=== PATIENT | female | born 1970 | race Caucasian/White ===

== ENCOUNTER 2021-04-03 08:07 | Outpatient (REF) | payer OTHER, SELFPAY ==
[2021-04-03 09:25] LABS: Influenza A PCR NEGATIVE (Negative); Influenza B PCR NEGATIVE (Negative); Resp Syncy Virus RNA Qual PCR NEGATIVE (Negative); SARS COV2 PCR INHOUSE NEGATIVE (Negative)
== END 2021-04-03 08:08 | disposition home or self-care (01) ==
LOC: HO.LAB 08:07
PROVIDERS: PCP Internal Medicine; Visit Provider Internal Medicine
DX: Z20.822 Contact with and (suspected) exposure to COVID-19 (principal)
CPT/HCPCS: 0241U; 36415; C9803

== ENCOUNTER 2022-04-03 15:08 | Outpatient (REF) | payer OTHER, SELFPAY ==
[2022-04-06 13:26] LABS: SARS COV2 IgG POSITIVE
== END 2022-04-03 15:09 | disposition home or self-care (01) ==
LOC: HO.LAB 15:08
PROVIDERS: Visit Provider Surgery
DX: Z20.822 Contact with and (suspected) exposure to COVID-19 (principal)
CPT/HCPCS: 36415; 86769

== ENCOUNTER 2023-09-06 09:54 | Day surgery (SDC) | payer OTHER, SELFPAY ==
--- NOTE | 2023-09-03 13:32 | HO.ANESPROP2 ---
HPI - Anesthesia Eval Consult details Narrative: 53yo F for Upper Endoscopy and Colonoscopy PMFSH Active Problems Active Problems: All Active Problems (Updated 09/01/23 @ 20:41 by Elinor Plummer, DYLON) COVID (Acute) Past Medical History Medical History (Updated 09/01/23 @ 20:41 by Elinor Plummer, RN) Phyllodes neoplasm of breast Surgical History Surgical History (Updated 09/01/23 @ 20:47 by Elinor Plummer, DYLON) History of breast surgery H/O breast reconstruction History of appendectomy Social History Social History Patient Tobacco Use Status: Current everyday Tobacco user Are you DNR?: No Advance Directives: No Advance Directives Information Provided: Yes Meds Allergies Allergy/AdvReac Type Severity Reaction Status Date / Time No Known Allergies Allergy Unverified 07/04/20 19:02 [No Known Allergies*] SUNFLOWER SEEDS Allergy Unknown Uncoded 02/05/17 00:00 Home Medications Medication Instructions Recorded Confirmed Last Taken Type No Known Home Meds 09/01/23 09/01/23 Unknown History Exam Height,Weight and Vital Signs: Height 5 ft 6 in Weight 56.245 kg Assessment and Plan Assessment Anesthesia Assessment: Chart Reviewed
[2023-09-06 10:01] VITALS: BP 94/56; PULSE 78; RESP 20; TEMP 36.1; O2SAT 97
[2023-09-06 10:21] VITALS: BMI 19.8
--- NOTE | 2023-09-06 10:21 | PC.NURSE ---
LIGHT BROWNISH TO BENNETT LIQUID NO SOLIDS AFTER FLEETS
[2023-09-06] MEDS: Lactated Ringers 1,000 ML 100 ML IVCONT (10:30)
[2023-09-06] MEDS: Sodium Phosphate,Mono-Dibasic 133 ML ENEMA PR (10:30)
[2023-09-06 10:37] VITALS: PULSE 70; RESP 16; O2SAT 98
[2023-09-06] MEDS: Albuterol Sulfate (0.083%) 2.5 MG/3 ML VIAL.NEB INHALE (10:38)
[2023-09-06 12:06] VITALS: BP 98/55; PULSE 75; RESP 18; TEMP 36.8; O2SAT 100
--- NOTE | 2023-09-06 12:10 | PM.OP ---
Brief Operative Note Date of Service: 09/06/23 Pre-op diagnosis: Screening Post-op diagnosis: other (Polyp) Procedure: Colonoscopy to the cecum and TI with cold snare polypectomy Surgeon: Natalio Benson MD Anesthesia: MAC Was an Phlebotomy Director used for this Procedure?: No Estimated blood loss (mL): 2.0 Pathology: other (A. Polyp at 30cm) Condition: stable Disposition: PACU
[2023-09-06 12:21] VITALS: BP 96/53; PULSE 68; RESP 18; O2SAT 100
[2023-09-06 12:36] VITALS: BP 106/64; PULSE 66; RESP 18; TEMP 36.8; O2SAT 100
--- NOTE | 2023-09-06 22:14 | OP_ITS ---
DATE OF SERVICE: 09/06/2023 SURGEON: Natalio Benson MD INDICATIONS: The patient presents for evaluation of colorectal cancer screening. Full consent has been obtained from her for this, including risks of bleeding and perforation. PREOPERATIVE DIAGNOSIS: Colorectal cancer screening. POSTOPERATIVE DIAGNOSIS: PROCEDURE PERFORMED: Colonoscopy to the cecum and terminal ileum with cold snare polypectomy x 1. ESTIMATED BLOOD LOSS: COMPLICATIONS: ANESTHESIA: Medication used, monitored anesthesia care. ASSISTANTS: SPECIMENS: POSTOPERATIVE DIAGNOSES: Colorectal cancer screening, colon polyp, occasional sigmoid diverticulosis, internal hemorrhoids. DESCRIPTION OF PROCEDURE: The patient was placed in the left lateral decubitus position. The digital rectal exam revealed no abnormalities. The Olympus video pediatric colonoscope was entered into the rectum and advanced to the cecum. Advancement to the cecum was difficult and required abdominal wall pressure for different portions of the procedure. It also required turning her into the supine position. However, once in the cecum, I did identify cecal pouch with appendiceal orifice and a normal-appearing ileocecal valve. There was transillumination of light deep in the right lower quadrant. The terminal ileum was cannulated and appeared normal. The scope was withdrawn back in the colon. The entire cecum was well visualized other than a small portion near the appendiceal orifice due to some retained stool that could not be cleared away. However, the great majority of the cecum was visualized and appeared normal. The scope was then slowly withdrawn assessing all mucosal surfaces carefully. For the most part preparation was very good throughout the colon, but again there were some small areas of liquid stool which had to be irrigated and suctioned away as best as possible. At 30 cm was an approximately 5 mm polyp, which was removed by cold snare polypectomy and recovered by suction. The polypectomy site appeared clean, without any sign of residual polyp nor significant bleeding. I did not visualize any other polyps, colitis, or angiodysplasia. There was a mild amount of sigmoid diverticulosis. In the rectum, the scope was retroflexed visualizing internal hemorrhoids, but no other pathology. The rectal mucosa appeared normal. The scope was straightened and withdrawn from the patient. She tolerated the procedure well and was returned to the recovery area in stable condition. IMPRESSION: 1. Colon polyp. 2. Diverticulosis. 3. Internal hemorrhoids. PLAN: The results of the pathology will be checked. Even if the polyp is not a tubular adenoma, I would recommend a followup coloscopy in 5 years just due to the mildly limited prep and the difficult exam. She was advised not to use any aspirin and NSAIDs for 1 week. MD MEGAN Michael/VICKEY / [id number] MTDD
== END 2023-09-06 13:05 | disposition home or self-care (01) ==
PROVIDERS: PCP Internal Medicine; Visit Provider Internal Medicine
PROC: 0DJD8ZZ Inspection of Lower Intestinal Tract, Via Natural or Artificial Opening Endoscopic (ICD-10-PCS; CPT 45378; principal; 2023-09-06 10:50)
DX: Z12.11 Encounter for screening for malignant neoplasm of colon (principal); D12.5 Benign neoplasm of sigmoid colon; K57.30 Diverticulosis of large intestine without perforation or abscess without bleeding; K64.8 Other hemorrhoids; F17.210 Nicotine dependence, cigarettes, uncomplicated
CPT/HCPCS: 45385; 88305; 94640; J2250; J2704

== ENCOUNTER 2023-10-29 11:00 | Outpatient (AMB) | payer OTHER, SELFPAY ==
--- NOTE | 2023-10-29 11:17 | A.OFFVIS_ITS ---
Intake Intake Visit Reasons: LDCT SD Allergies No Known Allergies [No Known Allergies*] Allergy (Unverified 10/29/23 11:37) SUNFLOWER SEEDS Allergy (Unknown, Uncoded 10/29/23 11:37) Unknown HPI HPI Comments History of Present Illness Details Alvaro is a pleasant 53 year old female, current 1/2 ppd smoker with a 27 PYH. Patient has been smoking since age 26 for 27 years at 1 ppd, recently decreased to 1/2 ppd. Denies marijuana use. Denies exposure to chemicals or substances like asbestos. Admits second hand smoke exposure. Denies known family history of lung cancer. Denies personal history of cancers. Denies chest CT in last year. Admits recent travel outside the [place] to [place]. Denies fever, chills, chest pain, new cough, hemoptysis or unintentional weight loss. Lung Cancer Screening Questionnaire reviewed with patient by provider. Shared Decision Making Completed. Discussed in detail with patient, the risk versus benefit of LDCT screening. Patient in agreement of proceeding with scan. REPLACED BY [facility] Medical History (Updated 10/29/23 @ 11:56 by Nathalie Gilliam NP) Phyllodes neoplasm of breast Surgical History History of breast surgery H/O breast reconstruction History of appendectomy Social History Patient Tobacco Use Status: Current everyday Tobacco user Assessment & Plan Assessment & Plan (1) Nicotine dependence: Code(s): F17.200 - Nicotine dependence, unspecified, uncomplicated Plan Shared decision-making visit completed today in office. This patient meets criteria for LDCT for lung cancer screening purposes and is asymptomatic. Offered smoking cessation. Patient has been scheduled for a low dose chest CT for screening purposes at [facility]. We discussed how the results will be obtained depending on CT findings. RADS 1 and RADS 2 will receive a letter with results and will follow up for annual LDCT. Patient informed they will be contacted at later date to schedule upcoming LDCT scan. RADS 3 and RADS 4 will receive a telephone call, or an office visit after reviewing case at our Lung Cancer Conference to determine when the next LDCT will be scheduled or further interventions that may be needed. Discussed importance of screening program and compliance with yearly LDCT scan as scheduled. Risks, benefits, and alternatives were discussed in detail and patient agrees to proceed. Risks discussed include but are not limited to: radiation exposure and possibility of additional intervention for benign disease. Benefits include detection of lung cancer at an early stage. A copy of today's visit and LDCT results will be sent to patient's PCP. Incidental findings on LDCT are PCP's responsibility. If there are incidental findings, our office will ensure that PCP office is aware of these findings. All questions were answered and patient is in agreement of plan. Coding Level of Care Code Lung Cancer Screening G0296 Diagnoses Nicotine dependence F17.200
== END 2023-10-29 11:44 | disposition home or self-care (01) ==
PROVIDERS: PCP Internal Medicine; Visit Provider Nurse Practitioner Family
DX: F17.200 Nicotine dependence, unspecified, uncomplicated (principal)
CPT/HCPCS: G0296

== ENCOUNTER → 2023-10-29 11:00 | Outpatient (BNVA) | payer OTHER, SELFPAY | PROVIDERS: PCP Internal Medicine; Visit Provider Nurse Practitioner Family | DX: L82.1 Other seborrheic keratosis (principal); F17.200 Nicotine dependence, unspecified, uncomplicated | CPT/HCPCS: G0296 ==

== ENCOUNTER 2023-10-29 11:25 | Outpatient (AMB) | payer OTHER, SELFPAY ==
--- NOTE | 2023-10-29 11:28 | A.OFFVIS_ITS ---
Intake Vital Signs 3 10/29/23 11:36 Height 5 ft 6 in Weight 128 lb BMI 20.7 BP 118/60 Blood Pressure Location Lt brachial Pulse 54 Intake Visit Reasons: lesion on thigh Intake Note: Patient is seen in office for evaluation and treatment of a skin lesion on thigh. 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 She reports a lesion in the similar location approximately 18 years ago which was excised and determined to be benign. Over the last several months however the lesion has returned and has increased in size. She denies any pain but does report itching on occasion. There has been no bleeding or discharge from the site. She has a dermatology appointment scheduled for 6 months from now but would like to have the lesion check prior to this to see if it is concerning. She denies other suspicious skin lesions. [facility] Medical History Phyllodes neoplasm of breast Surgical History History of breast surgery H/O breast reconstruction History of appendectomy Social History Patient Tobacco Use Status: Current everyday Tobacco user Review of Systems Const All systems reviewed & are unremarkable except as noted in HPI and below Physical Exam Const General: no acute distress and well developed Nutritional Appearance: well nourished Orientation/consciousness: patient oriented x3 HEENT Head: Yes normocephalic Resp Effort & Inspection: normal respiratory effort, no audible wheezes, no cough and no respiratory distress Skin General skin exam: no rashes or lesions noted Neuro General: patient oriented x3 Extrem Other: Seborrheic keratosis located on the left thigh lateral surface measuring 4 x 9 mm with a crusted surface, even color pattern and symmetric margins. No ulceration or bleeding appreciated. General: Yes no clubbing, cyanosis or edema Knee images: 2 1. Site of lesion lateral left thigh 4 x 9 mm. Assessment & Plan Assessment & Plan (1) Seborrheic keratosis: Code(s): L82.1 - Other seborrheic keratosis Plan 53-year-old female patient presenting with a skin lesion of the left leg which appears consistent with a seborrheic keratosis. Lesion appears benign but certainly could be removed if desired. 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 Coding Level of Care Code New Pt Level 3 (61494) Diagnoses Seborrheic keratosis L82.1
[2023-10-29 11:36] VITALS: BP 118/60; PULSE 54; BMI 20.7
== END 2023-10-29 11:54 | disposition home or self-care (01) ==
PROVIDERS: PCP Internal Medicine; Visit Provider Surgery
DX: L82.1 Other seborrheic keratosis (principal)
CPT/HCPCS: 99203

== ENCOUNTER 2023-11-08 09:01 | Outpatient (AMB) | payer OTHER, SELFPAY ==
--- NOTE | 2023-11-08 09:03 | MHC.OFFVIS ---
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 Patient reports that her pain has been present for about 2 months now, she has limited and painful ROM. This pain keeps her up at night. She has very mild numbness and tingling of the hand that seems to be aggravated by the cold. She has taken Advil for her pain but it was not helpful so she has discontinued. 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 She complains of pain with daily activity & pain with ROM. She feels her motion and use of her arm is limited. Her pain has been present for~2 months and is preventing her from sleeping comfortably at night. She found no relief from Advil so she stopped taking NSAIDs, and denies any other treatment. She reports mild numbness and tingling in her left hand, which is worse in the cold weather. She has a hx of a left mastectomy w/ reconstruction, done using back muscle, in 2019. [facility] Medical History Phyllodes neoplasm of breast Surgical History History of breast surgery H/O breast reconstruction History of appendectomy Social History Patient Tobacco Use Status: Current everyday Tobacco user Review of Systems Const All systems reviewed & are unremarkable except as noted in HPI and below Physical Exam Vital Signs: BMI result Body Mass Index 20.7 Const General: no acute distress, alert and awake Orientation/consciousness: patient oriented x3 HEENT Head: Yes normocephalic and Yes atraumatic Eyes EOM: EOMs intact bilaterally Resp Effort & Inspection: normal respiratory effort and able to speak in complete sentences Cardio Jugular venous distension: no JVD Skin General skin exam: turgor normal Rashes: no rashes Neuro General: patient oriented x3 Extrem Other: 55/90/130/S1 Neg EC + H/N Psych Appearance: grossly normal Affect: normal affect Attitude: cooperative Assessment & Plan Assessment & Plan (1) Subacromial bursitis of left shoulder joint: Code(s): M75.52 - Bursitis of left shoulder Plan: Left shoulder subacromial bursitis/impingment. Pain at night and with overhead activity. No RTC weakness. PT and NSAIDs. Injection if worsens. Plan Prepared for Rodrigo Diaz MD by Franky Issa, medical office secretary, on 11/08/23 at 9:23 AM, EST. Orders: Orders PT Evaluation and Treatment Today M75.52 - Bursitis of left shoulder Coding Level of Care Code New Pt Level 3 (62385) Diagnoses Subacromial bursitis of left shoulder joint M75.52
[2023-11-08 09:04] VITALS: BMI 20.7
== END 2023-11-08 10:17 | disposition home or self-care (01) ==
PROVIDERS: PCP Internal Medicine; Visit Provider Orthopaedic Surgery
DX: M75.52 Bursitis of left shoulder (principal)
CPT/HCPCS: 99203

== ENCOUNTER → 2023-11-08 09:01 | Outpatient (BNVA) | payer OTHER, SELFPAY | PROVIDERS: PCP Internal Medicine; Visit Provider Orthopaedic Surgery ==

== ENCOUNTER 2023-12-20 08:59 | Outpatient (REF) | payer OTHER, SELFPAY ==
--- NOTE | ~2023-12-20 | CT_ITS ---
EXAMINATION: CT CHEST SCREENING CLINICAL INFORMATION: Nicotine dependence. Current smoker at 1 pack per day with 26 pack-year history. COMPARISON: None available. TECHNIQUE: Multidetector volumetric CT imaging of the chest is performed without contrast using low dose technique. Additional 2D coronal and sagittal reformatted images and axial 3D maximum intensity projection (MIP) images are generated on the CT workstation. This CT examination was performed using dose optimization techniques as appropriate, variously including the following: *Automated exposure control *Adjustment of mA and/or kV according to patient size (this includes techniques or standardized protocols for targeted exams where dose is matched to indication/reason for exam; i.e. extremities or head) *Use of iterative reconstruction technique DLP: 48 mGy-cm FINDINGS: LUNGS: The lungs are clear with no evidence of inflammation or nodules. Mild emphysematous changes are present. MEDIASTINUM: The mediastinum is normal. CORONARY ARTERY CALCIFICATION: None visualized on this study. PLEURA: There is no pleural effusion. No pleural mass or thickening. AXILLA: No lymphadenopathy. UPPER ABDOMEN: Unremarkable OSSEOUS STRUCTURES: Unremarkable. CT/CT lung screening IMPRESSION: Mild emphysema. No pulmonary nodules or masses are seen. ASSESSMENT: Lung-RADS category 1: Negative RECOMMENDATION: Routine annual low-dose CT screening in 12 months.
== END 2023-12-20 09:00 | disposition home or self-care (01) ==
LOC: HO.CT 08:59
PROVIDERS: PCP Internal Medicine; Visit Provider Nurse Practitioner Family
DX: Z12.2 Encounter for screening for malignant neoplasm of respiratory organs (principal); F17.210 Nicotine dependence, cigarettes, uncomplicated
CPT/HCPCS: 71271

== ENCOUNTER → 2023-12-20 11:05 | Outpatient (BNV) | payer OTHER, SELFPAY | PROVIDERS: PCP Internal Medicine; Visit Provider Surgery | DX: D22.72 Melanocytic nevi of left lower limb, including hip (principal) | CPT/HCPCS: 99202 ==

== ENCOUNTER → 2023-12-20 11:05 | Day surgery (SDC) | payer OTHER, SELFPAY ==
--- NOTE | 2023-12-17 13:14 | HO.ANESPROP2 ---
HPI - Anesthesia Eval Consult details Narrative: 53yo F for Right Excision of skin mole on upper thigh PMFSH Active Problems Active Problems: All Active Problems (Updated 11/08/23 @ 09:31 by Rodrigo Diaz MD) Subacromial bursitis of left shoulder joint (Acute) Seborrheic keratosis (Acute) Nicotine dependence (Acute) COVID (Acute) Past Medical History Medical History (Updated 11/08/23 @ 09:31 by Rodrigo Diaz MD) Phyllodes neoplasm of breast Surgical History Surgical History (Updated 12/17/23 @ 08:20 by Annette Hillman RN) H/O colonoscopy History of breast surgery H/O breast reconstruction History of appendectomy Social History Social History Patient Tobacco Use Status: Current everyday Tobacco user Advance Directives: No Advance Directives Information Provided: Yes Meds Allergies Allergy/AdvReac Type Severity Reaction Status Date / Time SUNFLOWER SEEDS Allergy Unknown Unknown Uncoded 11/08/23 09:09 mold Allergy Unknown Uncoded 11/08/23 09:09 Home Medications Medication Instructions Recorded Confirmed Last Taken Type No Known Home Meds 09/01/23 10/29/23 Unknown History Assessment and Plan Assessment Anesthesia Assessment: Chart Reviewed
[2023-12-20 12:10] VITALS: BP 106/52; PULSE 61; RESP 18; TEMP 37.4; O2SAT 99
--- NOTE | 2023-12-20 12:10 | MHC.SHP ---
Pre-Procedural Eval Section A - 24 Hr Update-Section A only Date of Service: 12/20/23 The patient is an INPATIENT: No The patient has been examined within 24 hours of the surgical procedure. The History & Physical has been completed within 30 days and I have reviewed it.: Yes Section B - Complete if H&P > 30 days Chief Complaint: Melanocytic nevi, unspecified Details of Present Illness: Left thigh skin mole Relevant Family History (Specify if Yes): No Relevant Social History: None Present Medications: None Medical History: No relevant PMH History of Previous Operations: No relevant previous surgery Allergies: Allergies Allergy/AdvReac Type Severity Reaction Status Date / Time SUNFLOWER SEEDS Allergy Unknown Unknown Uncoded 11/08/23 09:09 mold Allergy Unknown Uncoded 11/08/23 09:09 Review of Systems Sugical H&P ROS: Negative: Constitution, Cardiovascular, Respiratory, Neurological, Psychiatric, Hem-Onc, Allergic/Immunologic, Gastrointestinal, Genitourinary, Musculoskeletal, Endocrine and Eyes/Ears/Nose/Throat and Yes, Specify: Integumentary (growing skin mole left upper thigh) Exam Surgical H&P Exam: Normal: HEENT, Normal: Heart, Normal: Lungs, Normal: Extremities, Normal: Abdomen and Normal: Neurological and Significant Findings: Skin (left thigh skin mole) Plan Diagnosis/Plan: Unchanged (Excision of left thigh skin mole. Risks of recurrence, infectin or dehiscence were discussed with the patient. She is in agreement with the plan.) I have reviewed the history and physical and performed a pertinent physical examination on my patient. No changes have occurred unless specified. Time Spent With Patient Time: Total time managing care of this patient today ____ minutes.
[2023-12-20 12:20] LABS: UPreg QC Valid YES; Urine Pregnancy NEGATIVE (NEGATIVE)
--- NOTE | 2023-12-20 12:23 | PM.HPGS ---
History of Present Illness History of Present Illness Date of Service: 12/20/23 Chief complaint: Melanocytic nevi, unspecified Narrative: Alvaro Cleveland is a 53 year old female who presents with a skin mole at left thigh. The patient has noticed that the mole has increased in size recently. Denies any pain or other associated symptoms Review of Systems Review of Systems: Yes all other systems are reviewed and are negative PMFSH Past Medical History Medical History (Updated 12/20/23 @ 12:28 by Cristian Del Rosario MD) Phyllodes neoplasm of breast Surgical History Surgical History H/O colonoscopy History of breast surgery H/O breast reconstruction History of appendectomy Social History Social History Patient Tobacco Use Status: Current everyday Tobacco user Use of substances other than those prescribed or required for medical reasons: No Are you DNR?: No Advance Directives: No Advance Directives Information Provided: Yes Travel History Ebola Risk: Travel/Contact With Anyone From Affected Area/s: No Has Patient Experienced Ebola Symptoms: No I have personally reviewed the patient's Ebola risk: Yes History of recent travel: No Recent Travel [facility] Within the Last 8 Weeks: No Recent Out of Country Travel Within the Last 8 Weeks: No Exposure or Possible Exposure to Illness During Travel: No History of Being in a Healthcare Facility as a Patient, Worker, or Visitor during Travel: No Medical Treatment Received for Symptoms/Illness Related to Travel: No Meds Allergies Allergy/AdvReac Type Severity Reaction Status Date / Time SUNFLOWER SEEDS Allergy Unknown Unknown Uncoded 11/08/23 09:09 mold Allergy Unknown Uncoded 11/08/23 09:09 Active Medications: Current Medications Lactated Ringer's (Lr) 1,000 mls @ 100 mls/hr IVCONT .Q10H [facility] Home Medications Medication Instructions Recorded Confirmed Last Taken Type No Known Home Meds 09/01/23 10/29/23 Unknown History Physical Exam Vital Signs: Vital Signs: Last Vital Signs Temp 99.4 F 12/20/23 12:10 Pulse 61 12/20/23 12:10 Resp 18 12/20/23 12:10 BP 106/52 L 12/20/23 12:10 Pulse Ox 99 12/20/23 12:10 O2 Del Method Room Air 12/20/23 12:10 BMI result Body Mass Index 20.0 GI: Inspection: Yes normal to inspection and Yes incision (RLQ incision from previous appendectomy) Back/Spine/Pelvis: Back: other (incision left side of back from latissimus dorsi flap breast reconstruction) Skin: General skin exam: spider nevi (left thigh) Rashes: no rashes Trauma: no lacerations or abrasions Wounds: no wounds Hair: normal Results Results Labs: Urine 12/20/23 Range/Units Unknown Urine Test NEGATIVE (NEGATIVE) Assessment and Plan (1) Melanocytic nevi of lower extremity or hip: Qualifiers: Laterality: left Qualified Code(s): D22.72 - Melanocytic nevi of left lower limb, including hip Status: Acute Plan Excision of left thigh nevus. Risks of recurrence, infection or dehiscence were discussed Quality Stroke Does the patient have a stroke diagnosis?: No VTE Prior VTE?: No VTE Risk Level:: Surgical - low VTE Device Contraindication: N/A - Device Ordered VTE Drug Contraindication: N/A - Med Ordered Procedures Date of Service Date of Service: 12/20/23
--- NOTE | 2023-12-20 12:29 | PM.OP ---
Brief Operative Note Date of Service: 12/20/23 Pre-op diagnosis: Left thigh nevus Post-op diagnosis: same Procedure: 12/20/2023 Diagnosis: Left thigh skin nevus Procedure: Excision of left skin nevus Description of procedure: The left lower extremity was properly marked. The area around the nevus was preped and draped in the usual sterile manner. The skin was anesthetized with lidocaine with 1% epinephrine mixed with sodium bicarbonate at a ratio 5:1. An elliptical incision was made around the nevus in a horizontal axis with 1mm margin. The skin and dermis was excised to the level of subcutaneous fat and removed en-bloc. The wound was closed in two layers using 3.0 Monocryl interrupted sutures for the dermis and 4.0 Monocryl subcuticular suture for the epidermis. Steri-strips and a water-proof dressing was applied on the wound. The patient tolerated the procedure well. The specimen will be sent to Pathology for histological examination. I was present and performed all steps of the procedure. Surgeon: Cristian Del Rosario MD Anesthesia: local Was an Talent Acquisition Relationship Manager used for this Procedure?: No Estimated blood loss (mL): 0 IV fluids (mL): 0 Urine output (mL): 0 (No [place] to record output) Pathology: other (Left thigh skin nevus) Condition: stable Disposition: PACU
--- NOTE | 2023-12-20 12:58 | PC.NURSE ---
pt decided to self cancel due to being not allowed to perform surgery on his per policy.m pt does not want other md to perform surgery.
== END | disposition home or self-care (01) ==
PROVIDERS: Anesthesiology; PCP Internal Medicine; Visit Provider Surgery
DX: D22.72 Melanocytic nevi of left lower limb, including hip (principal); Z53.29 Procedure and treatment not carried out because of patient's decision for other reasons
CPT/HCPCS: 81025

== ENCOUNTER 2024-01-07 10:53 | Outpatient (AMB) | payer OTHER, SELFPAY ==
--- NOTE | 2024-01-07 10:58 | A.OFFVIS_ITS ---
Intake Intake Visit Reasons: OV - Left Shoulder bursitis/impingement Intake Note: Alvaro is a 53 year old female who presents today for a follow up of her left shoulder bursitis/impingement. She has pain at night and with overhead activity. At her last visit she was given a physical therapy order and was discussed that we would try an injection if her pain continues/worsens. Her pain has imporoved but she still struggles with ROM. She is not interested in doing an injection today Allergies SUNFLOWER SEEDS Allergy (Unknown, Uncoded 11/08/23 09:09) Unknown mold Allergy (Uncoded 11/08/23 09:09) Unknown HPI OV - Left Shoulder bursitis/impingement HPI Details Alvaro is a 53 year old female who presents today for a follow up of her left shoulder bursitis/impingement. She has pain at night and with overhead activity. At her last visit she was given a physical therapy order. I spoke with her physical therapist and she has been having worsening stiffness and symptoms of capsulitis. She comes back for follow-up today. She does have a history of surgery on the ipsilateral breast. 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 She has a negative but painful empty can and positive Friedman and Neer. Assessment & Plan Assessment & Plan (1) Internal derangement of left shoulder: Code(s): M24.812 - Other specific joint derangements of left shoulder, not elsewhere classified Plan: This is a 53-year-old female with left shoulder internal derangement. Initially her symptoms were more impingement/bursitis and now there is a component of capsulitis. MRI was ordered and I will see her back after that is completed. Orders: Orders MR shoulder LT wo con Today M24.812 - Other specific joint derangements of left shoulder, not elsewhere classified Coding Level of Care Code Est Pt Level 3 (13990) Diagnoses Internal derangement of left shoulder M24.812
== END 2024-01-07 11:30 | disposition home or self-care (01) ==
PROVIDERS: PCP Internal Medicine; Visit Provider Orthopaedic Surgery
DX: M24.812 Other specific joint derangements of left shoulder, not elsewhere classified (principal)
CPT/HCPCS: 99213

== ENCOUNTER → 2024-01-07 10:53 | Outpatient (BNVA) | payer OTHER, SELFPAY | PROVIDERS: PCP Internal Medicine; Visit Provider Orthopaedic Surgery ==

== ENCOUNTER 2024-02-09 10:23 | Outpatient (REF) | payer OTHER, SELFPAY ==
--- NOTE | ~2024-02-09 | MR_ITS ---
EXAMINATION: MR SHOULDER WITHOUT CONTRAST, LEFT CLINICAL INFORMATION: Left shoulder pain. Decreased range of motion. Frozen shoulder. COMPARISON: Left shoulder radiograph dated 02/05/2017. TECHNIQUE: MRI of the shoulder without contrast was performed on a high-field scanner. FINDINGS: ROTATOR CUFF: Mild subscapularis tendinosis with distal intrasubstance/articular surface partial tearing measuring 1.3 cm in ML dimension. No full-thickness rotator cuff tendon tear. No muscle atrophy or fatty infiltration. BICEPS: Intact. CORACOACROMIAL ARCH: The undersurface of the acromion is curved with no subacromial spur. Mild acromioclavicular osteoarthritis. Trace fluid and edema within the subacromial subdeltoid bursa, consistent with minimal bursitis. LABRUM/CAPSULE: Linear fluid signal within the undersurface of the superior labrum, likely representing a nondisplaced undersurface tear. Mild thickening and edema of the anteroinferior joint capsule which can be seen the setting of adhesive capsulitis. GLENOHUMERAL JOINT/MARROW: Intact articular cartilage. No acute osseous injury. MR/MR shoulder LT wo con IMPRESSION: 1. Mild subscapularis tendinosis with distal intrasubstance/articular surface partial tearing measuring 1.3 cm in ML dimension. No full-thickness rotator cuff tendon tear. 2. Mild acromioclavicular osteoarthritis with minimal subacromial subdeltoid bursitis. 3. Probable nondisplaced undersurface tear of the superior labrum. 4. Mild thickening and edema of the anteroinferior joint capsule which can be seen the setting of adhesive capsulitis.
== END 2024-02-09 10:24 | disposition home or self-care (01) ==
LOC: HO.MRI 10:23
PROVIDERS: PCP Internal Medicine; Visit Provider Orthopaedic Surgery
DX: M24.812 Other specific joint derangements of left shoulder, not elsewhere classified (principal)
CPT/HCPCS: 73221

== ENCOUNTER 2025-02-26 15:17 | Outpatient (REF) | payer OTHER, SELFPAY ==
--- NOTE | ~2025-02-26 | CT_ITS ---
CLINICAL HISTORY: F17.210 - Nicotine dependence, cigarettes, uncomplicated CT lung cancer screening (LDCT) Comparison: CT/LA/SR - CT LUNG SCREENING - 12/20/23 09:19 EST Technique: Axial CT images of the chest using low-dose technique. Referring provider counseled the patient on shared decision-making for LDCT screening. Additional counseling was provided on smoking cessation. Effective radiation dose total: DLP 28.5 mGycm, CTDIvol 0.9 mGy. Findings: Lung: There are no pulmonary nodules. There is no consolidation or pleural effusion. There are no significant emphysematous changes. Coronary artery calcifications: _None, mild, moderate, severe_ Limited upper abdomen: Unremarkable Other: There are surgical clips within the left axilla. Impression: Category 1: Normal. Continue annual screening. # #L1 ## Category 1: Normal; continue annual screening Category 2: Benign appearance or behavior, continue annual screening Category 3: Probably benign, [address] recommended Category 4A: Suspicious, [address] recommended; may consider PET/CT Category 4B: Suspicious, Additional diagnostics and/or tissue sampling recommended Category 4X: Suspicious, Additional diagnostics and/or tissue sampling recommended Category 0: Recalls (incomplete screen due to Incomplete coverage, Noise, Respiratory motion, Expiration, Obscured by acute abnormality) This document has been electronically signed by: Ana Krishna MD on 02/27/2025 15:41:24
--- OUTSIDE RECORDS SUMMARY | 2025-02-26 15:20 | XMS_ITS ---
Author Organization [facility] Address [address] [place] [id number] Care Team Providers Care Thermoforming Operator Name Role Phone Natalio Benson Primary Care Provider REASON FOR VISIT screening Problems Problem Type SNOMED Code ICD Code Onset Dates Problem Status W/U Status Risk Notes Problem Diverticular disease of colon (318320062) Diverticulosis of large intestine without perforation or abscess without bleeding (K57.30) Active confirmed Encounters Encounter Location Date Provider Diagnosis [facility] Outpatient [address] [place] [phone] 09/06/2023 Natalio Benson Encounter for scre ening colonoscopy Z12.11 ; Colon polyps K63.5 ; Diverticulosis of large intestine without perforation or abscess without bleeding K57.30 and Other hemorrhoids K64.8 Assessments Encounter Date Diagnosis (ICD Code) Assessment Notes Treatment Notes Treatment Clinical Notes Section Notes 09/06/2023 Encounter for screening colonoscopy (ICD-10 - Z12.11) 09/06/2023 Colon polyps (ICD-10 - K63.5) 09/06/2023 Diverticulosis of large intestine without perforation or abscess without bleeding (ICD-10 - K57.30) 09/06/2023 Other hemorrhoids (ICD-10 - K64.8) Plan Of Treatment No Information Progress Notes * TAI SILVA (Shira):0 1970 (54 yo F)Acc No.[id number]:09/06/2023 COLON WITH MAC Patient:?TAI SILVA (Ta shireen) Provider:?Natalio Benson MD :1970???Age:53 Y???Sex:Female D ate:09/06/2023 Address: [address] [id number] Subjective: * Chief Complaints: * ???1. Screening. * Medical History:? Objective: * Vitals:? Assessment: * Assessment: 1.?Encounter for screening c olonoscopy - Z12.11 (Primary)???2.?Colon polyps - K63.5???3.?Diverticulosis of large intestine without perforation or abscess without bleeding - K57.30???4.?Other hemorrhoids - K64.8??? Plan: * Treatment: * Procedure Codes:?56934 LESIO N REMOVAL COLONOSCOPY, Modifiers: PT * * The named appointment provid er may or may not be the originator of this progress note, and it is not deemed complete until electronically signed by the appointment provider. Sign off status: Pending * Provider:?Natalio Benson MD Date:? 023 Generated for Jo dao/Carlos/eTransmitting on:?02/26/2025 03:20 PM EDT
--- OUTSIDE RECORDS SUMMARY | 2025-02-26 15:20 | XMS_ITS | Patient Health Record ---
Author Organization [facility] Address [address] [place] [address] Care Team Providers Care Rn Circulating Name Role Phone Natalio Benson Primary Care Provider [phone] Allergies No Known Allergies Reason For Referral No Information Social History Tobacco Use: Social History Observation Description Date Details (start date - stop date) Current Smoker NA - NA Tobacco Use/Smoking Question Answer Notes Patient is a current smoker How often do you smoke cigarettes? every day How many cigarettes a day do you smoke? 6-10 Alcohol Screen Question Answer Notes Did you have a drink contain ing alcohol in the past year? Yes How often did you have a dri nk containing alcohol in the past year? Monthly or less (1 point) How many drinks did you have on a typical day when you were drinking in the past year? 1 or 2 drinks (0 point) How often did you have 6 or more drinks on one occasion in the past year? Never (0 point) Points 1 Interpretation Negative Section Notes: Smoker 10cigs QD; occ. alcohol. Originally from [place] Problems Problem Type SNOMED Code ICD Code Onset Dates Problem Status W/U Status Risk Notes Problem Diverticular disease of colon (649224849) Diverticulosis of large intestine without perforation or abscess without bleeding (K57.30) Active confirmed Problem [id number] Screen for colon cancer (Z12.11) Active confirmed Problem [id number] Preprocedural examination (Z01.818) Active confirmed Plan Of Treatment Future Test Test Name Order Date COLONOSCOPY 05/27/2023 Insurance Providers Payer Name Payer Address Payer Phone Subscriber Number Group Number Insured Name Patient Relationship to Insured Coverage Start Date Coverage End Date [employer] 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
--- OUTSIDE RECORDS SUMMARY | 2025-02-26 15:20 | XMS_ITS | Clinical Summary ---
Author Organization [facility] Address [address] [place] [address] Care Team Providers Care Streetcar Operator Name Role Phone Gretchen Cisneros MD Primary Care Provider [phone] Allergies No known active allergies Medications No known medications Active Problems Problem Noted Date Diagnosed Date Skin mole 12/22/2023 Social History Tobacco Use Types Packs/Day Years Used Date Smoking Tobacco: Every Day Cigarettes Smokeless Tobacco: Never Alcohol Use Standard Drinks/Week Comments Not Currently 0 (1 standard drink = 0.6 oz pur e alcohol) [facility] - Occupational Stress Questionnaire Answer Date Recorded Do you feel stress - tense, restless, nervous, or anxious, or unable to sleep at night because your mind is troubled all the time - these days? Not at all 12/22/2023 Physical Activity Answer Date Recorded On average, how many days pe r week do you engage in moderate to strenuous exercise (like a brisk walk)? 3 12/22/2023 On average, how many minutes do you exercise per day at this level? 40 12/22/2023 Comments Unknown Sex and Gender Information Value Date Recorded Sex Assigned at Female 12/21/2023 11:51 AM EST Legal Sex Female 11:04 PM EST Gender Identity Not on file Sexual Orientation Not on file Last Filed Vital Signs Vital Sign Reading Time Taken Comments Blood Pressure 105/77 12/22/2023 1:18 PM EST Pulse 76 12/22/2023 1:18 PM EST Temperature 36.2 ??C (97.2 ??F) 12/22/2023 1:18 PM ES T Respiratory Rate - - Oxygen Saturation 99% 12/22/2023 1:18 PM EST Inhaled Oxygen Concentration - - Weight 58.1 kg (128 lb) 12/22/2023 1:18 PM EST Height 168.9 cm (5' 6.5 ) 12/22/2023 1:18 PM EST Body Mass Index 20.35 12/22/2023 1:18 PM EST Plan of Treatment Health Maintenance Due Date Last Done Comments Hepatitis C Virus Screening 1970 HIV Screening 1985 DTaP/Tdap/Td Vaccines (1 - Tdap) 1991 Hepatitis B Vaccines (1 of 3 - 19+ 3-dose series) 12/1990 Pneumococcal Vaccines 50+ (1 of 2 - PCV) 1991 Mammogram 2012 Colonoscopy 2017 Zoster (Shingles) Vaccine (1 of 2) 2022 COVID-19 Vaccine (1 - 2023- season) 2024 Influenza Vaccine 05/18/2025 08/29/2020 Pap Smear (Ages 21-65) 04/14/2026 04/14/2023 Procedures Procedure Name Priority Date/Time Associated Diagnosis Comments THINPREP PAP(MILL LABOR SUPERVISOR) HPV SCR RFX HPV 16,18/45 Routine 04/14/2023 12:00 AM EDT from Last 3 Months or Most Recently Relevant to Health Maintenance Results * ThinPrep Pap(Corridor Redevelopment Manager) HPV Scr Rfx HPV 16,18/45 (04/14/2023 12:00 AM EDT) Report Report [facility] Comment: Final Gynecological Cytology Report ThinPrep Pap Test, HPV Screen, Reflex HPV Genotype SPECIMEN ADEQUACY: SATISFACTORY FOR EVALUATION; ENDOCERVICAL/TRANSFORMATION ZONE COMPONENT PRESENT. INTERPRETATION: NEGATIVE FOR INTRAEPITHELIAL LESION OR MALIGNANCY. Electronically Signed: ??Dru Wallace, CT(ASCP) CLINICAL INFORMATION: LMP: NG Biopsy Date: ??NG Specimen Source: ??Cervix, Endocervix Previous Pap Date: ??NG HPV RESULTS: HPV mRNA E6/E7 ?? [id number] ?? Approved: 04/15/23 Negative ? REF RANGE: Negative CPT Codes: 23503 ICD Codes: Z01.411, Z01.419 Other 04/14/2023 04/15/2023 2:2 4 AM EDT us Maria E Johnson MD LAB AMB PATH/CYTO ORDERABLES Final Result [facility] [address], [place] from Last 3 Months or Most Recently Relevant to Health Maintenance Insurance [id number] PPO Care Teams Streetcar Operator Relationship Specialty Start Date End Date Gretchen Cisneros MD PCP - General 12/21/23
--- OUTSIDE RECORDS SUMMARY | 2025-02-26 15:20 | XMS_ITS ---
Author Name [facility] Organization Unknown History of Medication Use Medication Directions Dispensed Refills Start Date End Date Stat us alprazolam 1 mg tablet 04/14/2023 completed Adults Multivitamin comp leted No known medications No known medications active Problems Problem Status Onset Date Problem Type Date of Resoluti on Source Phyllodes tumor of breast active 2023-04-14 ProblemAct [facility] Skin mole active 2023-12-22 ProblemAct [facility] Encounters Encounter Type Encounter Reason Primary Diagnosis Location Date Ambulatory Encntr for house decorator exam (general) (routine) w/o abn findings Encntr for house decorator exam (general) (routine) w/o abn findings [facility] 11/03/2024 Ambulatory [facility] 01/05/2024 Ambulatory Melanocytic nevi, unspecified Melanocytic nevi, unspecified [facility] 12/22/2023 Ambulatory [facility] 04/14/2023 Care Team Organization Name Specialty Phone Email Start Date End Da te [facility] 12/30/2023 [facility] 12/22/2023 01/03/2025 [facility] C[facility] 12/21/2023 [facility] 08/20/2023 024 [facility] 04/15/2023 [facility] 04/14/2023 04/14/2023
--- OUTSIDE RECORDS SUMMARY | 2025-02-26 15:21 | XMS_ITS | Data Portability ---
Author Organization [place] - [facility], [facility] Address [id number] [place] [address] Care Team Providers Care Internet Marketing Consultant Name Role Phone RICHARD BENNETT Primary Care Provider [phone] Assessment No assessment recorded. Plan of Treatment Reminders Order Date Submit Date Provider Last Modified By Organization Details Last Modified Time Details Appointments None record ed. Lab pap, IG + HPV 023 04/14/20 23 [facility], [address] [place] [address], [id number] 09:06:31 pap, IG + HPV 017 03/17/20 17 [facility], [address] [place] [address], [id number] 7 15:22:31 Referral None record ed. Procedures None record ed. Surgeries None record ed. Imaging None record ed. Medication Orders None record ed. Patient TargetsNo targets recorded. Patient Instructions Encounter Date Encounter Id Patient Instructions Last Modified By Organization Details Last Modified Time 03/17/2017 [id number] [email or web address] Not available 11:04:49 07/15/2018 [id number] [email or web address] Not available 11:31:45 Reason for Referral None Reported. Results Created Date Observation Date Name Description Value Unit Range Abnormal Flag Note LastModifiedBy Organization Detail LastModifiedTime 03/17/20 17 03/22/2017 pap, IG + HPV report THINP REP TIS PAP AND HPV mRNA E6/E7 REFLE X HPV 16,18 /45 Lab: NL1 [facility] MAT[facility] N: None given LMP: NI prev. Pap: NONE GIVEN prev. Bx: NI SOURC E: Cervi x, Endoc ervix STATE MENT OF ADEQU ACY: Satis facto ry for evalu ation . Endoc ervic al/tr ansfo rmati on zone compo nent prese nt. Age and/o r menst rual statu s not provi ded INTER PRETA TION/ RESUL T: Negat carroll for intra epith elial lesio n or malig javi . COMME NT: This Pap test has been evalu ated with compu ter roberto carlos yanna techn ology . CYTOT ECHNO LOGIS T: MXD, CT (ASCP ) CT scree марина locat ion: [facility] [address] [place] [id number] [address] [facility] Clien t [facility] [place] at [phone] Lab: NL1 HPV mRNA E6/E7 REFLE X HPV 16, 18/45 HPV mRNA E6/E7 Not Detec yanna Refer ence Range : Not Detec yanna This test was perfo rmed using the APTIM A HPV Assay ([employer] . This assay detec ts E6/E7 viral messe nger RNA (mRNA ) from 14 high- risk HPV types (16,1 8,31, 33,35 ,39,4 5,51, 52,56 ,58,5 9,66, 68). THINP REP TIS PAP AND HPV mRNA E6/E7 REFLE X HPV 16,18 /45 PERFO RMING SITE: NL1 [facility] [address] ,[place] [address] Labor atory Direc tor: ADALID LOWE MD , CLIA: [id number] Not Available [facility] [address] [place], [address] 03/22/2017 15:22:04/14/2004/14/2023 HPV MRNA E6/E7 HPV MRNA E6/E7 Negati ve negati ve APTIM A HPV assay detec ts 14 high risk HPV types (HPV 16,18 ,31,3 3,35, 39,45 ,51,5 2,56, 58,59 ,66,6 8). The assay is FDA appro anthony for testi ng ThinP rep liqui d Pap vials but not FDA appro anthony for detec ting HPV in SureP ath liqui d Pap speci mens. In-ho use valid ation has shown the assay can detec t all HPV types from this sourc e Not Available [facility] [address] [facility], [place], [address] 04/20/2023 09:06:29 04/14/2004/14/2023 THINP REP PAP TEST (IMAG ER), HPV SCREE N, REFLE X HPV 16,18 /45 report Report Final Gynec ologi carmen Cytol ogy Repor t ----- ----- ----- ----- ----- ----- ----- ----- ----- ----- ----- ----- ThinP rep Pap Test, HPV Scree n, Refle x HPV Genot ype SPECI MEN ADEQU ACY: SATIS FACTO RY FOR EVALU ATION ; ENDOC ERVIC AL/TR ANSFO RMATI ON ZONE COMPO NENT PRESE NT. INTER PRETA TION: NEGAT CARROLL FOR INTRA EPITH YINA Granados OR ANMOL MCKEON . Elect brett [place]: Dru Wallace, JAYLEN( CP) ----- ----- ----- ----- ----- ----- ----- ----- ----- ----- ----- ----- [facility] KIARA MARSHALL N: LMP: NG Biops y Date: NG Speci men Sourc e: Cervi x, Endoc ervix Previ ous Pap Date: NG HPV RESUL TS: HPV mRNA E6/E7 [id number] Appro anthony: 04/15 Negat carroll REF RANGE : Negat carroll CPT Codes : 22786 ICD Codes : Z01.4 11, Z01.4 19 Not Available [facility] [address] [facility] [place], [address] 04/20/2023 09:06:31 05/26/20 18 05/26/2018 US, nicky t No observ ation record ed. [email or web address] Not Available 2017 15:21:17 05/26/20 18 05/26/2018 MAMMO , diagn ostic , bilat eral No observ ation record ed. [email or web address] Not Available 2017 15:21:18 Result Notes None recorded. 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 Procedures Surgical History Date Name Laterality Status Provider Name and Address Organization Details Recorded Time 04/14/20 23 Date of Last Pap Smear completed Sherlyn Hebert [place] - [facility] 10/25/2024 15:32:01 Breast Biopsy completed Not Available [facility] 03/15/2015 14:56:18 Appendectomy completed Not Available [facility] 03/[facility] 14:56:18 Imaging Results Imaging Date Name Status LastModified by Organiz ation Details LastModified Time 05/26/2018 US, breast completed Information no t available 05/26/2018 15:21:17 05/26/2018 MAMMO, diagnostic, bilateral completed Information not available 05/26/2018 15:21:18 Procedure Notes None recorded. Medical Equipment None Reported. Allergies No known drug allergies Medications Name Sig Start Date Stop Date Status Note LastModified by Organization Details LastModified Time azithromycin 250 mg tablet 11/03 completed Not Available Not Available Not Available alprazolam 1 mg tablet 04/14 completed Not Available Not Available Not Available alprazolam 0.5 mg tablet TAKE 1 TABLET BY MOUTH EVERY DAY NEEDED active Not Available Not Available No t Available magnesium active Not Available Not Freda ilable Not Available Vitamin C active Not Available Not Freda ilable Not Available Vitamin D3 active Not Available Not Av ailable Not Available multivitamin active Not Available Not Available Not Available Vitals Date Recorded Body height Body weight Body mass index (BMI) Systolic blood pressure Diastolic blood pressure Provider Name and Address Organization Details Last Updated DateTime 03/17/2017 170.18 cm 32424.53 g 17.9 kg/m2 118 mm[Hg] 72 mm[Hg] [facility] 10:29:31 Date Recorded Body height Body mass index (BMI) Body weight Systolic blood pressure Diastolic blood pressure Provider Name and Address Organization Details Last Updated DateTime 07/15/2018 170.18 cm 18.2 kg/m2 77216.71 g 100 mm[Hg] 60 mm[Hg] [facility] 11:11:30 Date Recorded Body height Body mass index (BMI) Body weight Systolic blood pressure Diastolic blood pressure Provider Name and Address Organization Details Last Updated DateTime 04/14/2023 170.18 cm 19.3 kg/m2 42467.86 g 100 mm[Hg] 62 mm[Hg] Racheal Patrick [facility] 3 15:33:13 Date Recorded Body height Body mass index (BMI) Body weight Systolic blood pressure Diastolic blood pressure Provider Name and Address Organization Details Last Updated DateTime 11/03/2024 170.18 cm 20 kg/m2 09255.82 g 96 mm[Hg] 64 mm[Hg] Sherlyn Hebert [facility] 5 14:52:18 Social History Question Answer Notes LastModified by Organizat ion Details LastModified Time Tobacco Smoking Status Current Every Day Smoker Racheal Patrick [facility], [facility] 04/14/2023 15:27:16 What Is Your Level Of Caffeine Consumption? Moderate [email or web address] Information not available 11/03/2024 Does Your Partner Physically Hurt You Or Threaten To Hurt You? No Information not available 07/15/2018 Has Your Partner Forced You To Have Sex Or Perform Sex Acts When You Did Not Want To? No Information not available 07/15/2018 Does Your Partner Insult, Scream At Or Talk Down To You? No Information not available 07/15/2018 Does Your Partner Control You Or Any Part Of Your Life? No Information not available 07/15/2018 Are You Afraid Of Your Partner? No Has Partner Information not available 07/15/2018 Drug Use? No Information no t available 03/17/2017 Do You Feel Safe At Home? Yes Information not available 03/17/2017 What Was The Date Of Your Most Recent Tobacco Screening? 11/03/2024 [email or web address] Information not available 11/03/2024 How Many Children Do You Have? 2 [email or web address] Information not available 11/03/2024 Have You Ever Been Counseled For Unhealthy Alcohol Use? No [email or web address] Information not available 11/03/2024 Do You Use Protection During Sex? No Information not available 11/03/2024 Do You Use Protection Against STDs? No [email or web address] Information not available 11/03/2024 Are You Sexually Active? Yes Information not available 04/14/2023 How Much Tobacco Do You Smoke? 0.5 PPD Information not available 04/14/2023 Has Tobacco Cessation Counseling Been Provided? No Information not available 11/03/2024 Do You Have Any Future Plans To Get ? No, I Don't Want To Become [email or web address] Information not available 11/03/2024 Sex: Female Functional Status Question Answer Note LastModified by Organizat ion Details LastModified Time How many times per week do you consume alcohol? 1-2 times per week [email or web address] Information not available 11/03/2024 What is your level of alcohol consumption? Occasional Information not available 03/17/2017 Mental Status None recorded. Family History Relationship Description Onset Age of this Age Resolved Age Notes LastModified by Organization Details LastModified Time Maternal Aunt Malignant tumor of breast [email or web address] Not available 2016 15:44:41 Father Hypertensive disorder [email or web address] Not available 2016 15:44:53 Notes:No family hx of ovaria n or colon cancer Medical History No medical history recorded. Gynecological History Statement/Question Response Current Control Method None Date of Last Colonoscopy Date of Last Mammogram Date of LMP 09/27/2024 Date of last DEXA IPV Screen Done 11/03/2024 Date of Last Pap Smear 04/14/2023 Last HPV Result Negative Obstetrics History GPAL:G 3 P 2 0 1 2 Type Value Full Term 2 Spontaneous 1 Living 2 Total 3 Past Encounters Encounter ID Performer Location Encounter Start Date Encounter Closed Date Diagnosis/Indication Diagnosis SNOMED-CT Code Diagnosis ICD10 Code Diagnosis Note [id number] [facility] OP [address] [place] [address] 05/17/2013 00:00:00 [id number] YUMIKO ROJAS MD [address] [address] 03/17/2017 09:47:48 03/17/2017 11:33:02 Gynecologic examination 15618507 [address]01.[address] exam need mammo result Continue exercise and healthy diet To consider seeing GI for possible colonoscop y [id number] YUMIKO ROJAS MD [address] [address] 07/15/2018 11:00:22 07/15/2018 11:36:32 Gynecologic examination 78303999 Z01.[address] Engineer exam left breast cyst. Referred to breast surgeon discussed exercise and healthy diet [id number] YUMIKO ROJAS MD [address] [address] 04/14/2023 15:20:35 04/14/2023 16:13:39 Gynecologic examination 11026470 Z01.[address] examcontin ue exercise and healthy dietmammo with frantz colonoscop y scheduled [id number] YUMIKO ROJAS MD [address] [address] 11/03/2024 14:43:15 11/03/2024 15:32:49 Gynecologic examination 71997364 Z01.[address] examcontin ue exercise and healthy dietmammo with kandis try estrovera for some perimenopa usal symptoms. not interested in HRT Health Concerns Section Related Observation LastModified by Organization Detai ls LastModified Time None Recorded Concern Status LastModified by Organization Details LastModified Time None Recorded Advance Directives Directive None Recorded Payers Insurance Date Sequence Insurance Name Policy Number Policy De Anda Covered Member ID De Anda Member ID Guarantor Name 04/14/2023 1 [facility] [id number] Cristian Del Rosario [id number] Foteini Roditi 11/03/2024 1 [facility] [id number] Foteini Roditi [id number] Foteini Roditi 11/03/2024 1 [facility] Foteini Roditi [id number] Foteini Roditi 11/06/2024 1 BS-ID: [facility] [id number] Cristian Del Rosario MD [id number] Foteini Roditi Notes Date Note Type Note Provider Name and Address Organization Details Recorded Time 03/17/2017 text/html 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 ? ? Menses regular Moved back from [facility] years ago Recently lost weight, thinks related to stress and diet.? ? ? Stools slightly looser no surgeries no FH changes Had mammo in [place] since that is where insurance is YUMIKO ROJAS MD [address] [facility] [place], [address], [facility] 03/17/2017 11:07:32 07/15/2018 text/html [facility] Annual GYNReported bypatient.Notes:He re for annual exam. 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 no pain no surgeries gained weight from last year no FH changes YUMIKO ROJAS MD [address] [facility], [address], [place], [address], [facility] 07/15/2018 11:32:14 04/14/2023 text/html [facility] Annual GYNReported bypatient.Notes:He re for annual exam. menses regular still. occ misses mensesno hot flashes or night sweatsexercise: regularlyno medical changesHad lumpectomy 2019 for phyllodes tumor with sloanno FH changes YUMIKO ROJAS MD [address] [facility], [address], [place], [address], [facility] - [facility] 04/14/2023 16:06:47 11/03/2024 text/html [facility] Annual GYNReported bypatient.Notes:He re for annual exam. menses x2 last yearsome joint pain and moodiness, but no hot flashes or night sweatsexercise: regularlyno medical or surgical changesno FH changes Sales Associate offered and declined. YUMIKO ROJAS MD [address] [facility], [address], [place], [address], [facility] - [facility] 11/03/2024 15:31:04 OBGyn Episode No OBEpisode recorded.
--- OUTSIDE RECORDS SUMMARY | 2025-02-26 15:21 | XMS_ITS | Data Portability ---
Author Organization [place] [facility] [place] [facility] [place], [facility]_CTCMA_IM_01 [facility]TER Address [address] [place] [address] Care Team Providers Care Dental Laboratory Manager Name Role Phone GRETCHEN BENNETT Primary Care Provider Assessment No assessment recorded. Plan of Treatment Reminders Order Date Submit Date Provider Last Modified By Organization Details Last Modified Time Details Appointments Wellness Visit 2025 03:00P M Gretchen Bennett MD Not available Not available Not available Lab CBC w/ auto diff 2023 024 [email or web address], [address], [place], [address], 02/14/2024 08:15:37 CMP, serum or plasma 2023 024 [email or web address] [facility], [address], [place], [address], 02/14/2024 08:15:37 lipid panel, serum 2023 024 [email or web address], [address], [place], [address], 02/14/2024 08:15:37 TSH, serum or plasma 2023 024 [email or web address], [address], [place], [address], 02/14/2024 08:15:37 varicella -zoster igg Ab screen, serum 2023 024 JENNIFER [facility], [address], [place], [address], 02/07/2024 15:30:59 CBC w/ auto diff 2022 023 [facility], [address], [place], [address], 04/12/2023 11:37:02 CMP, serum or plasma 2022 023 [facility], [address], [place], [address], 04/12/2023 11:37:02 lipid panel, serum 2022 023 [facility], [address], [place], [address], 04/12/2023 11:37:03 TSH, serum or plasma 2022 023 [facility], [address], [place], [address], 04/12/2023 11:37:03 hepatitis C virus Ab, serum 2022 023 [facility], [address], [place], [address], 04/12/2023 11:37:03 Referral None recorded. Procedures None recorded. Surgeries None recorded. Imaging electroca rdiogram [address] [facility]_ctc[facility]_im_0 3 [facility], [address], [place], [address], 02/08/2024 08:59:17 electroca rdiogram [address]_ctcma_im_0 3 [facility], [address], [address], [place], [address], 04/05/2023 13:03:31 Medication Orders alprazola m 0.5 mg tablet 2023 024 [id number] [address], [place], [phone], 02/07/2024 16:52:07 alprazola m 1 mg tablet 2022 023 robin [facility] #[id number], [address], [place], [id number], 02/07/2024 15:40:09 Patient TargetsNo targets recorded. Patient InstructionsNo instructions recorded. Reason for Referral None Reported. Results Created Date Observation Date Name Description Value Unit Range Abnormal Flag Note LastModifiedBy Organization Detail LastModifiedTime 04/05/20 23 elect rocar diogr am No observ ation record ed. BOISE [facility]ctc[facility]_im_0 [address] [address], [place], [address], 04/05/2023 10:47:41 02/07/20 24 elect rocar diogr am No observ ation record ed. BOISE [facility]ctcma_im_0 [address] [address], [place], [address], 02/07/2024 15:20:38 02/11/20 24 02/09/2024 MRI, nati jelena, w/o contr ast No observ ation record ed. [email or web address] [facility] ([facility]) [address] [place], [address], 02/11/2024 15:56:37 Result Notes None recorded. Problems Name Problem SNOMED Code Status Onset Date Resolution Date Notes Provider Name and Address Organization Details Recorded Time Anxiety 20876465 Active 2016 Anxiety Not Available [facility] 13:25:55 Allergic rhinitis caused by pollen 34341249 Active 2016 Seasonal allergic rhinitis due to pollen Not Available [facility] 3 13:25:55 Visual disturba nce 67097203 Completed 201804/05/2023 Visual disturba nce Gretchen Bennett MD [address] [place] [address], [address], [place], [address] , [place] [facility] 3 09:57:10 Body mass index less than 20 804954099 Active 2016 Adult BMI <19 kg/sq m Not Available [facility] 3 13:25:[address] [facility] breast tissue appearan ce 281268126 Active 2017 Dense breast tissue on mammogra m Not Available [facility] 3 13:25:55 Cobalami n deficien cy 785758676 Active 2016 Vitamin B12 deficien cy Not Available [facility] 3 13:25:55 Vitamin D deficien cy 76504601 Active 2016 Vitamin D deficien cy Not Available [facility] 3 13:25:55 Phyllode s tumor of breast 106043119 Active 2022 Gretchen Bennett MD [address] [place] [address], [address] [place] [address], [place], [address] , [place] [facility] 3 10:58:07 Adhesive capsulit is of left shoulder 22824129484 9107 Active 2023 Gretchen Bennett MD [address] [place] [address], [address] [place] [address], [place], [address] , [place] [facility] 4 15:11:28 Problem Notes None recorded. Procedures Surgical History Date Name Laterality Status Provider Name and Address Organization Details Recorded Time 3 Colonoscopy completed juan r givensk [place] - [place] [facility] 01/23/2025 14:17:09 Imaging Results Imaging Date Name Status LastModified by Organization Details LastModified Time 04/05/2023 electrocardiogram completed BOISE [facility]_ctcm a_im_[address], [place], [address], 04/05/2023 10:47:41 02/07/2024 electrocardiogram completed JENNIFER Ct_ctcm a_im_03 [facility] [address] [facility] [facility] [address], [place], [address], 02/07/2024 15:20:38 02/09/2024 MRI, shoulder, w/o contrast completed [email or web address] [facility] [address] [place], [address], 02/11/2024 15:56:37 Procedure Notes None recorded. Medical Equipment None Reported. Medications Name Sig Start Date Stop Date Status Note LastModified by Organization Details LastModified Time alprazolam 1 mg tablet Take 1 tablet (1 mg total) by mouth daily as needed. 02/06 completed Not Available Not Available Not Available fexofenadine 180 mg tablet Take 180 mg by mouth daily. 04/05 completed Not Available Not Available Not Available alprazolam 0.5 mg tablet TAKE 1 TABLET BY MOUTH EVERY DAY NEEDED active Not Available Not Available No t Available Vitals Date Recorded Body height Body mass index (BMI) Body weight Provider Name and Address Organization Details Last Updated DateTime 02/07/2024 167.64 cm 19.9 kg/m2 97517.86 g Jewell Son [facility] 02/07/2024 15:06:43 Date Recorded Heart rate Systolic blood pressure Diastolic blood pressure Provider Name and Address Organization Details Last Updated DateTime 02/07/2024 60 /min 94 mm[Hg] 60 mm[Hg] Gretchen Bennett MD [address] [place] [address], [address], [place], [address], [facility] 02/07/2024 15:29:04 Date Recorded Body height Body mass index (BMI) Body weight Provider Name and Address Organization Details Last Updated DateTime 04/05/2023 167.64 cm 20.5 kg/m2 38601.23 g Elsa Herron [facility] 04/05/2023 09:40:23 Date Recorded Heart rate Systolic blood pressure Diastolic blood pressure Provider Name and Address Organization Details Last Updated DateTime 04/05/2023 62 /min 100 mm[Hg] 60 mm[Hg] Gretchen Bennett MD [address], [address], [place], [address], [place] [facility] 04/05/2023 10:55:08 Social History Question Answer Notes LastModified by Organizat ion Details LastModified Time Tobacco Smoking Status Current Some Day Smoker Gretchen Bennett MD [address], [address], [place], [address], [place] [facility] 02/07/2024 15:14:54 What Type Of Diet Are You Following? REGULAR Information not available 04/05/2023 How Many Children Do You Have? 2 19 UCONN , 14 HS Information not available 02/07/2024 What Is Your Current Pack Years? 10-19packye ars Information not available 02/07/2024 What Is Your Relationship Status? Information not available 04/05/2023 How Much Tobacco Do You Smoke? 0.5 PPD Information not available 02/07/2024 Sex: Unknown Functional Status Question Answer Note LastModified by Organizat ion Details LastModified Time Are you currently employed? No Information not available 04/05/2023 What is your exercise level? Occasional weights, pilates, yoga Information not available 04/05/2023 Mental Status None recorded. Family History Nothing Reported. Medical History No medical history recorded. Gynecological HistoryNo gynecological history recorded. Obstetrics History GPAL:G 0 P 0 0 0 0 Immunizations Vaccine Type Date Status Note Provider Nam e and Address Organization Details Recorded Time TST-PPD intradermal 7 completed Not Available [facility] 02/13/2023 14:48:33 Past Encounters Encounter ID Performer Location Encounter Start Date Encounter Closed Date Diagnosis/Indication Diagnosis SNOMED-CT Code Diagnosis ICD10 Code Diagnosis Note [id number] Gretchen Bennett MD [facility]_ IM_[address],[facility] [address] [place] [address] 04/05/2023 09:30:10 04/05/2023 13:03:31 Adult health examination 868442410 Z00.00 Hand Roller appt scheduled for 03/2023Mamm o annual at [facility] copy to be scheduledI mmunizatio n declined Anxiety 01739803 F41.9 Uses only on flights now [id number] Gretchen Bennett MD [facility]_ IM_03 [facility] [address] [facility] [address] [place] [address] 02/07/2024 14:57:50 02/08/2024 08:59:17 Adult health examination 167941902 Z00.00 Hand Roller 03/2023Mamm o 2022 [facility] copy 09/06/2023 polyp==> [address] BensonImmun ization declined Adhesive c apsulitis of left shoulder 6605119492 34276 M75.02 Ff up Ortho Anxiety 54217110 F41.9 Uses alprazolam only on flights now Phyllodes tumor of breast 666877105 D48.62 Ff up MSK, annual mammo and [facility] Concerns Section Related Observation LastModified by Organization Detai ls LastModified Time None Recorded Concern Status LastModified by Organization Details LastModified Time None Recorded Advance Directives Directive None Recorded Payers Insurance Date Sequence Insurance Name Policy Number Policy De Anda Covered Member ID De Anda Member ID Guarantor Name 02/09/2025 1 [place] [id number] Cristian Del Rosario MD [id number] Alvar[place] Notes Date Note Type Note Provider Name and Address Organization Details Recorded Time 04/05/20 23 text/htm l AnxiietyDoing better overall Gretchen Bennett MD [address] [place] [address], [address] [place] [address], [address], [place] [facility] 04/05/2023 11:00:20 02/07/20 24 text/htm l L shoulder painPt with frozen shoulder on the L from the fallTried PT but not improvingShe is scheduled for an MRIPhyllodes tumor of breastAsmptomaticAnxietyOnly uses alprazolam for flights now, and only uses 1/2 dose Gretchen Bennett MD [address] [place] [address], [address] [place] [address], [place], [address], [place] [facility] 02/07/2024 16:54:26 OBGyn Episode No OBEpisode recorded.
== END 2025-02-26 15:18 | disposition home or self-care (01) ==
LOC: HO.CT 15:17
PROVIDERS: PCP Internal Medicine; Visit Provider Physician Assistant Medical
DX: Z12.2 Encounter for screening for malignant neoplasm of respiratory organs (principal); F17.210 Nicotine dependence, cigarettes, uncomplicated
CPT/HCPCS: 71271

== ENCOUNTER → 2025-02-26 15:19 | Outpatient (BNV) | payer OTHER, SELFPAY | PROVIDERS: PCP Internal Medicine; Visit Provider Radiology Diagnostic Radiology | DX: F17.210 Nicotine dependence, cigarettes, uncomplicated (principal) | CPT/HCPCS: 71271 ==